=== PATIENT | male | born 2000 | race Two or more races ===

== ENCOUNTER 2019-03-11 04:58 | Emergency (ER) | payer SELFPAY ==
[~2019-03-11] VITALS: Ht 175.3 cm; Wt 113.4 kg
[2019-03-11] MEDS ORDERED: cloNIDine HCL 0.1 MG TAB PO ONE ×2 (05:30→06:00)
[2019-03-11 06:44] LABS: Albumin 3.7 g/dL (3.4-5.0); Anion Gap 10 (5-15); Blood Urea Nitrogen 7 mg/dL (7-18); Carbon Dioxide 25 mmol/L (21-32); Chloride 104 mmol/L (98-107); Glucose 281 mg/dL (74-106); Potassium 3.1 mmol/L (3.5-5.1); Sodium 139 mmol/L (136-145)
[2019-03-11 06:49] LABS: Alanine Aminotransferase 311 U/L (16-61); Alkaline Phosphatase 132 U/L (45-117); Aspartate Aminotransferase 151 U/L (15-37); BUN/Creatinine Ratio 7.7; Bilirubin, Total 0.5 mg/dL (0.2-1.0); GFR African American 137 mL/min; GFR Non-African American 113 mL/min; Total Protein 8.8 g/dL (6.4-8.2)
[2019-03-11 07:26] LABS: Hematocrit 47.1 % (41.0-53.0); Mean Corpuscular Hemoglobin 29.1 pg (28.0-32.0); Mean Corpuscular Hgb Conc. 33.9 g/dL (32.0-36.0); Mean Corpuscular Volume 85.8 fL (80.0-100.0); Platelet Count (auto) 137 10^3/uL (140-450); Red Cell Distribution Width 13.7 % (11.8-14.3); White Blood Cell 9.4 10^3/uL (4.4-10.8)
[2019-03-11 07:32] LABS: Basophils % (manual) 0 (0.0-2.0); Blast Cells 0; Eosinophils % (manual) 0 (0-7); Metamyelocytes % 0; Myelocytes % 0; Promyelocytes % 0
[2019-03-11 08:18] LABS: Band Neutrophils % (manual) 2; Lymphocytes % (manual) 29 (10.0-50.0); Monocytes % (manual) 5 (0-12)
[2019-03-11 08:19] LABS: Reactive Lymphocytes 2
[2019-03-11 09:09] LABS: Urine Bacteria NONE SEEN /hpf (None Seen); Urine Blood Negative /uL (Negative); Urine Budding Yeast OCCASIONAL /hpf (None Seen); Urine Specific Gravity 1.026 (1.001-1.035); Urine WBC 46 /hpf (0 - 3)
[2019-03-11 09:39] VITALS: BP 130/77
[2019-03-11 09:50] LABS: Alcohol, Urine < 3.0 mg/dL (0-5); Amphetamine Screen, Urine NEGATIVE (NEGATIVE); Barbiturate Scree,Urine NEGATIVE (NEGATIVE); Benzodiazephine Screen, Urine NEGATIVE (NEGATIVE); Cannabinoid Screen, Urine NEGATIVE (NEGATIVE); Cocaine Screen, Urine NEGATIVE (NEGATIVE); Opiate Scree,Urine NEGATIVE (NEGATIVE); Phencyclidine Screen, Urine NEGATIVE (NEGATIVE)
[2019-03-11] MEDS ORDERED: POTASSIUM EFFERVESENT TAB 25 MEQ PO ONE (10:15)
[2019-03-11] MEDS ORDERED: cefTRIAXone SOD 1,000 MG VL IM ONE (10:15)
[2019-03-11] MEDS ORDERED: cefTRIAXone 1GM/50ML D5W 50 ML IV ONE (10:45)
== END 2019-03-11 12:19 | disposition home or self-care (01) ==
LOC: ER 04:58
DX: R07.89 Other chest pain (principal); I10 Essential (primary) hypertension; N39.0 Urinary tract infection, site not specified; E87.6 Hypokalemia
CPT/HCPCS: 36415; 71045; 80053; 80307; 81001; 83735; 84484; 85007; 85027; 93005; 96365; 99284; J0696